=== PATIENT | female | born 1955 ===

== ENCOUNTER 2024-11-05 05:15 | Day surgery (SDC) | payer OTHER ==
[2024-11-01 13:17] VITALS: BP 147/72
[~2024-11-05] VITALS: Ht 162.6 cm; Wt 59.0 kg
[~2024-11-05 05:15] MED LIST: CRESTOR40 MG; XYZAL5 MG PO
[2024-11-05] MEDS ORDERED: CEFAZOLIN SODIUM 1,000 MG VIAL ONE (06:33)
== END 2024-11-05 11:25 | disposition home or self-care (01) ==
LOC: CIR.AMB 05:15
PROVIDERS: ATTEND Colon & Rectal Surgery
DX: R15.9 Full incontinence of feces (principal); E78.5 Hyperlipidemia, unspecified
CPT/HCPCS: 64581; 95971; C1778

== ENCOUNTER 2024-11-16 05:30 | Day surgery (SDC) | payer OTHER ==
[2024-11-16] MEDS ORDERED: CEFAZOLIN SODIUM 1,000 MG VIAL IV ONE (08:00)
== END 2024-11-16 10:50 | disposition home or self-care (01) ==
LOC: CIR.AMB 05:30
PROVIDERS: ATTEND Colon & Rectal Surgery
DX: R15.9 Full incontinence of feces (principal)
CPT/HCPCS: 64590; 95971; C1767